=== PATIENT | female | born 1995 | race Caucasian/White ===

== ENCOUNTER 2016-10-13 12:03 | Emergency (ER) | payer MEDICAID | END 2016-10-13 13:36 | disposition home or self-care (01) | DX: G43.909 Migraine, unspecified, not intractable, without status migrainosus (principal) ==

== ENCOUNTER 2017-08-13 10:01 | Outpatient (CLI) | payer MEDICAID ==
--- NOTE | 2017-08-13 13:43 | Ultrasound Report ---
OB ULTRASOUND: 08/13/2017 CLINICAL INDICATION: anatomy. TECHNIQUE: Real-time scanning was performed with loss control representative static images obtained. LAST MENSTRUAL PERIOD 04/18/2017 Clinical Age 16 weeks 5 days US Age 18 weeks 2 days EFW Hadlock 237 EFW% Hadlock 97% Heart Rate 148 bpm EDC 01/23/2018 US EDC 01/12/2018 BPD Hadlock 18 weeks 1 day; Mean mm 39.8 HC Hadlock 18 weeks 0 days; Mean mm 149 AC Hadlock 18 weeks 6 days; Mean mm 134 FL Hadlock 17 weeks 6 days; Mean mm 26 Presentation moving Placental Location anterior Cervical Length 4.0 cm Amniotic Fluid 10.8 FINDINGS: There is a single viable intrauterine gestation, in variable position. heart rate is 148 BPM. The placenta is anterior, without evidence of previa. Amniotic fluid volume is subjectively normal. By size, the fetus measures 18 weeks 2 days (16 weeks 5 days by LMP dating). The following anatomic structures were visualized and appear normal: The intracranial contents, including the ventricles and posterior fossa; the lips and orbits; the spine; the heart, including 4-chamber view and outflow tracts, and diaphragm; the abdominal contents, including the stomach, the bilateral kidneys, and urinary bladder, as well as a normal 3- vessel cord insertion; 4 limbs. The right ovary demonstrates a 2.4 cm corpus luteum. The left ovary is unremarkable. No free fluid is present. IMPRESSION: SINGLE VIABLE INTRAUTERINE GESTATION, WITH SIZE IN KEEPING WITH LMP DATING. NORMAL ANATOMIC SURVEY. MTDD
== END 2017-08-13 10:02 | disposition home or self-care (01) ==
LOC: DI 10:01
PROVIDERS: ATTEND Midwife
DX: Z36.9 Encounter for antenatal screening, unspecified (principal)
CPT/HCPCS: 76811

== ENCOUNTER 2017-12-17 09:27 | Outpatient (CLI) | payer MEDICAID ==
--- NOTE | 2017-12-20 13:19 | Ultrasound Report ---
LIMITED OB ULTRASOUND: 12/17/2017 COMPARISON STUDY: OB ultrasound 08/13/2017. CLINICAL INDICATIONS: labor. Please evaluate cervical length. TECHNIQUE: Real-time scanning was performed with client care representative static images obtained. LAST MENSTRUAL PERIOD: 04/08/2017 Clinical Age: 36 weeks 1 day US Age: --- EFW Hadlock: --- EFW% Hadlock: --- Heart Rate: 134 bpm EDC: 01/13/2018 US EDC: --- BPD Hadlock: --- HC Hadlock: --- AC Hadlock: --- FL Hadlock: --- Presentation: cephalic Placental Location: anterior Cervical Length: 3.43 cm Amniotic Fluid: --- IMPRESSION: LIMITED EXAMINATION. SINGLE VIABLE INTRAUTERINE . NORMAL CLOSED APPEARANCE OF THE CERVIX. NO EVIDENCE OF PLACENTA PREVIA. MTDD
== END 2017-12-17 09:28 | disposition home or self-care (01) ==
LOC: DI 09:27
PROVIDERS: ATTEND Midwife
DX: O60.00 Preterm labor without delivery, unspecified trimester (principal)
CPT/HCPCS: 76815

== ENCOUNTER 2018-05-21 05:51 | Outpatient (CLI) | payer MEDICAID | END 2018-05-21 05:52 | disposition critical access hospital (66) | LOC: EMS 05:51 | PROVIDERS: ATTEND Surgery | DX: R11.2 Nausea with vomiting, unspecified (principal); R20.2 Paresthesia of skin | CPT/HCPCS: A0425; A0429; A0999 ==

== ENCOUNTER 2018-05-21 06:14 | Emergency (ER) | payer MEDICAID ==
[2018-05-21 06:20] VITALS: BP 107/55
[2018-05-21 06:59] LABS: MUDS CUTOFF CONCENTRATIONS CUTOFF CONC BELOW:
[2018-05-21 07:00] LABS: BILIRUBIN,URINE NEGATIVE (NEGATIVE); GLUCOSE, URINE (UA) NEGATIVE (NEGATIVE); KETONES,URINE (UA) >=80 mg/dL (NEGATIVE); LEUKOCYTE ESTERASE, URINE NEGATIVE (NEGATIVE); NITRITE,URINE NEGATIVE (NEGATIVE); OCCULT BLOOD,URINE NEGATIVE (NEGATIVE); PH,URINE 5.5 PH (5.0-7.5); PROTEIN,URINE NEGATIVE (NEGATIVE); UROBILINOGEN,URINE 0.2 (NORMAL) E.U./dL (NORMAL)
[2018-05-21 07:02] LABS: CLARITY,URINE CLEAR (CLEAR); HCG UR QUAL NEGATIVE
[2018-05-21 07:12] LABS: BASOPHILS % (AUTO) 0.5 %; EOSINOPHILS % (AUTO) 0.2 %; HGB - HEMOGLOBIN 13.9 g/dL (12.0-16.0); LYMPHOCYTES # (AUTO) 1.4 10^3/uL (1.5-3.5); LYMPHOCYTES % (AUTO) 17.2 %; MEAN CORPUSCULAR HEMOGLOBIN 29.5 pg (27.0-31.0); MEAN CORPUSCULAR HGB CONC 33.5 g/dL (32.0-36.0); MEAN CORPUSCULAR VOLUME 88.1 fL (81.0-99.0); MONOCYTES # (AUTO) 0.5 10^3/uL (0.0-1.0); MONOCYTES % (AUTO) 6.1 %; NEUTROPHILS # (AUTO) 6.3 10^3/uL (1.5-6.6); PLT - PLATELET COUNT 237 10^3/uL (130-450); RED BLOOD COUNT 4.72 10^6/uL (4.20-5.40); RED CELL DISTRIBUTION WIDTH 14.3 % (12.0-15.0); WHITE BLOOD COUNT 8.3 x10^3/uL (4.8-10.8)
[2018-05-21 07:14] LABS: AMPHETAMINE SCREEN,URINE NEGATIVE (NEGATIVE); BENZODIAZEPINES SCREEN, URINE NEGATIVE (NEGATIVE); COCAINE SCREEN URINE NEGATIVE (NEGATIVE); METHADONE SCREEN, URINE NEGATIVE (NEGATIVE); METHAMPHETAMINES SCREEN, URINE NEGATIVE (NEGATIVE); OPIATE SCREEN, URINE NEGATIVE (NEGATIVE); OXYCODONE SCREEN, URINE NEGATIVE (NEGATIVE); PROPOXYPHENE SCREEN, URINE NEGATIVE (NEGATIVE); TRICYCLIC ANTIDEPRESSANT,URINE NEGATIVE (NEGATIVE)
[2018-05-21 07:23] LABS: ALBUMIN 4.3 g/dL (3.2-5.5); ALBUMIN/GLOBULIN RATIO 1.5 (1.0-2.2); ALKALINE PHOSPHATASE 54 IU/L (42-121); ALT ALANINE AMINOTRANSFERASE 28 IU/L (10-60); AST ASPARTATE AMINOTRANSFERASE 27 IU/L (10-42); BILIRUBIN,TOTAL 0.9 mg/dL (0.2-1.0); BUN - BLOOD UREA NITROGEN 20 mg/dL (6-20); CALCIUM 8.9 mg/dL (8.5-10.3); CARBON DIOXIDE - CO2 22 mmol/L (21-32); CHLORIDE 104 mmol/L (101-111); CREATININE 0.7 mg/dL (0.4-1.0); GFR - MDRD 102 (>89); GLUCOSE 65 mg/dL (70-100); LIPASE 26 U/L (22-51); SODIUM 139 mmol/L (135-145); TOTAL PROTEIN 7.1 g/dL (6.7-8.2)
--- NOTE | 2018-05-21 07:33 | ED Physician Documentation ---
History of Present Illness - Stated complaint Stated Complaint: HYPERVENTILATING - Chief complaint Chief Complaint: Abd Pain - History obtained from History obtained from: Patient - History of Present Illness Timing: Enter time (399), Today - Additonal information Additional information: 23-year-old female was awakened at 4:00 this morning and a cold sweat. She felt chilled she felt that her extremities were cold and numb her nose was cold and she was diaphoretic. She felt a bit confused and she was able to get up to get out of the couch and her sister eventually came and gave her some food. She denies any anxiety associated with this and denies hyperventilation. She states she has had 2 episodes similar to this previously 1 at 7:00 in the morning about a month ago and then one episode while at work about 2 weeks ago. Those previous episodes were much more mild than today's episode. She has been previously diagnosed as prediabetic and she is wondering if she might of been hypoglycemic. She has had food last night she states that she ate fried chicken. Review of Systems Constitutional: reports: Chills, Fatigue, Sweats. denies: Fever Eyes: denies: Decreased vision Ears: reports: Tinnitus/ringing. denies: Ear pain Nose: denies: Rhinorrhea / runny nose, Congestion Throat: denies: Sore throat Cardiac: denies: Chest pain / pressure, Palpitations Respiratory: denies: Dyspnea, Cough GI: denies: Abdominal Pain, Nausea, Vomiting : denies: Dysuria, Frequency Skin: denies: Rash Musculoskeletal: denies: Neck pain, Back pain, Extremity pain Neurologic: denies: Generalized weakness, Focal weakness, Numbness, Confused, Altered mental status, Headache, Head injury, LOC PD PAST MEDICAL HISTORY - Past Medical History Past Medical History: No Cardiovascular: None Respiratory: None Endocrine/Autoimmune: HyPOthyroidism GI: None 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: Ovarian cysts : Chronic bladder infection, Other HEENT: None Psych: None Musculoskeletal: Fibromyalgia Derm: None - Past Surgical History Past Surgical History: No - Present Medications Home Medications: Ambulatory Orders Medication Instructions Recorded Confirmed Ondansetron Odt [Zofran] 4 mg TL Q6H PRN #10 tablet 05/21/18 - Allergies Allergies/Adverse Reactions: Allergies Allergy/AdvReac Type Severity Reaction Status Date / Time acetaminophen [From Vicodin] Allergy Itching Verified 07/08/15 16:56 hydrocodone bitartrate * Allergy Itching Verified 07/08/15 16:56 [From Vicodin] - Social History Does the pt smoke?: No Smoking Status: Never smoker Does the pt drink ETOH?: Yes Does the pt have substance abuse?: No - Immunizations Immunizations are current?: No - POLST Patient has POLST: No PD ED PE NORMAL - Vitals Vital signs reviewed: Yes (hypotensive mild diastolic ) - General General: Alert and oriented X 3, No acute distress, Well developed/nourished - HEENT HEENT: Atraumatic, PERRL, EOMI, Ears normal, Moist mucous membranes, Pharynx benign, Dentition benign - Neck Neck: Supple, no meningeal sign, No bony TTP - Cardiac Cardiac: RRR, No murmur - Respiratory Respiratory: No respiratory distress, Clear bilaterally - Abdomen Abdomen: Soft, Non tender - Back Back: No CVA TTP, No spinal TTP - Derm Derm: Normal color, Warm and dry, No rash - Extremities Extremities: No deformity, No edema - Neuro Neuro: Alert and oriented X 3, barrel plater 2-12 intact, No motor deficit, No sensory deficit, Normal speech Eye Opening: Spontaneous Motor: Obeys Commands Verbal: Oriented GCS Score: 15 - Psych Psych: Normal mood, Normal affect Results - Vitals Vitals: Vital Signs - 24 hr 05/21/18 06:16 Temperature 36.5 C Heart Rate 86 Respiratory 14 Rate Blood Pressure 107/55 L O2 Saturation 98 Oxygen O2 Source Room air - Labs Labs: Laboratory Tests 05/21/18 05/21/18 05/21/18 06:50 06:50 07:04 WBC 8.3 RBC 4.72 Hgb 13.9 Hct 41.5 MCV 88.1 MCH 29.5 MCHC 33.5 RDW 14.3 Plt Count 237 MPV 8.0 Neut # (Auto) 6.3 Lymph # (Auto) 1.4 L [place] # (Auto) 0.5 Eos # (Auto) 0.0 Baso # (Auto) 0.0 Absolute Nucleated RBC 0.00 Nucleated RBC % 0.0 Sodium Potassium Chloride Carbon Dioxide Anion Gap BUN Creatinine Estimated GFR (MDRD) Glucose Calcium Total Bilirubin AST ALT Alkaline Phosphatase Total Protein Albumin Globulin Albumin/Globulin Ratio Lipase TSH Urine Color YELLOW Urine Clarity CLEAR Urine pH 5.5 Ur Specific [place] >=1.030 H Urine Protein NEGATIVE Urine Glucose (UA) NEGATIVE Urine Ketones >=80 H Urine Occult Blood NEGATIVE Urine Nitrite NEGATIVE Urine Bilirubin NEGATIVE Urine Urobilinogen 0.2 (NORMAL) Ur Leukocyte Esterase NEGATIVE Ur Microscopic Review NOT INDICATED Urine Culture Comments NOT INDICATED Urine HCG, Qual NEGATIVE Urine Opiates Screen NEGATIVE Ur Oxycodone Screen NEGATIVE Urine Methadone Screen NEGATIVE Ur Propoxyphene Screen NEGATIVE Ur Barbiturates Screen NEGATIVE Ur Tricyclics Screen NEGATIVE Ur Phencyclidine Scrn NEGATIVE Ur Amphetamine Screen NEGATIVE U Methamphetamines Scrn NEGATIVE U Benzodiazepines Scrn NEGATIVE Urine Cocaine Screen NEGATIVE U Cannabinoids Screen NEGATIVE Ethyl Alcohol 05/21/18 05/21/18 07:04 07:04 WBC RBC Hgb Hct MCV MCH MCHC RDW Plt Count MPV Neut # (Auto) Lymph # (Auto) [place] # (Auto) Eos # (Auto) Baso # (Auto) Absolute Nucleated RBC Nucleated RBC % Sodium 139 Potassium 3.7 Chloride 104 Carbon Dioxide 22 Anion Gap 13.0 BUN 20 Creatinine 0.7 Estimated GFR (MDRD) 102 Glucose 65 L Calcium 8.9 Total Bilirubin 0.9 AST 27 ALT 28 Alkaline Phosphatase 54 Total Protein 7.1 Albumin 4.3 Globulin 2.8 Albumin/Globulin Ratio 1.5 Lipase 26 TSH 0.55 Urine Color Urine Clarity Urine pH Ur Specific [place] Urine Protein Urine Glucose (UA) Urine Ketones Urine Occult Blood Urine Nitrite Urine Bilirubin Urine Urobilinogen Ur Leukocyte Esterase Ur Microscopic Review Urine Culture Comments Urine HCG, Qual Urine Opiates Screen Ur Oxycodone Screen Urine Methadone Screen Ur Propoxyphene Screen Ur Barbiturates Screen Ur Tricyclics Screen Ur Phencyclidine Scrn Ur Amphetamine Screen U Methamphetamines Scrn U Benzodiazepines Scrn Urine Cocaine Screen U Cannabinoids Screen Ethyl Alcohol < 5.0 Procedures - IVC sono (time) 0725 Bedside IVC sono: IVC measures (cm) (1.59), Euvolemia PD MEDICAL DECISION MAKING - ED course Complexity details: reviewed old records, reviewed results, re-evaluated patient , considered differential, d/w patient ED course: 23-year-old female with a history of frequent urinary tract infections has developed an acute episode early this morning with diaphoresis and hypothermia. She is found to have a low blood sugar this morning and her episodes are consistent with hypoglycemia. Her symptoms were not consistent with acute anxiety attack. Her blood glucose was 65 and she has ketones in her urine. On further history she is breast feeding a 4 month old baby. A re-check of her blood sugar is 53 at 0745. She is provided with juice. She is provided with zofran and a meal and her blood sugar is 113 after eating. - Sepsis Event Vital Signs: Vital Signs - 24 hr 05/21/18 06:16 Temperature 36.5 C Heart Rate 86 Respiratory 14 Rate Blood Pressure 107/55 L O2 Saturation 98 Oxygen O2 Source Room air Departure - Departure Disposition: 01 Home, Self Care Clinical Impression: Hypoglycemia Condition: Stable Instructions: ED Blood Sugar Low Non Diabetic Follow-Up: Rafael Thomson MD [Primary Care Provider] - Prescriptions: Ondansetron Odt [Zofran] 4 mg TL Q6H PRN #10 tablet PRN Reason: Nausea / Vomiting Forms: Activity restrictions
[2018-05-21] MEDS ORDERED: ONDANSETRON ODT 4 MG TABLET TL STA (08:12)
== END 2018-05-21 09:04 | disposition home or self-care (01) ==
LOC: ED 06:14
DX: E16.2 Hypoglycemia, unspecified (principal)
CPT/HCPCS: 36415; 80053; 80306; 80320; 81003; 81025; 83690; 84443; 85025; 99282; 99283; Q0162; 81001; 87086

== ENCOUNTER 2019-01-01 22:38 | Emergency (ER) | payer MEDICAID ==
[2019-01-02 00:02] LABS: BILIRUBIN,URINE NEGATIVE (NEGATIVE); GLUCOSE, URINE (UA) NEGATIVE (NEGATIVE); KETONES,URINE (UA) NEGATIVE (NEGATIVE); LEUKOCYTE ESTERASE, URINE NEGATIVE (NEGATIVE); NITRITE,URINE NEGATIVE (NEGATIVE); OCCULT BLOOD,URINE TRACE-LYSE (NEGATIVE); PH,URINE 5.5 PH (5.0-7.5); PROTEIN,URINE NEGATIVE (NEGATIVE); UROBILINOGEN,URINE 0.2 (NORMAL) E.U./dL (NORMAL)
[2019-01-02 00:03] LABS: CLARITY,URINE CLEAR (CLEAR)
[2019-01-02 00:04] LABS: HCG UR QUAL NEGATIVE
--- NOTE | 2019-01-02 00:05 | ED Physician Documentation ---
PD HPI ABD PAIN - Stated complaint Stated Complaint: ABD PX - Chief complaint Chief Complaint: Abd Pain - History obtained from History obtained from: Patient - History of Present Illness Timing - onset: How many days ago (5) Timing - duration: Days (5) Timing - details: Gradual onset Quality: Pain Location: Other (across pelvic, mid=left pelvis>right pelvis) Improved by: Other (no ameliorating factors) Worsened by: Palpation Associated symptoms: No: Fever, Nausea, Vomiting, Diarrhea, Constipation Recently seen: Not recently seen - Additional information Additional information: had IUD placed 5 days ago, c/o pelvic pain since that time. She had similar discomfort with last IUD. Patient says she contacted her indirect sales representative and was told to go to ED to have this pain evaluated and to consider having IUD removed. 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: Ovarian cysts : Chronic bladder infection, Other HEENT: None Psych: None Musculoskeletal: Fibromyalgia Derm: None - Past Surgical History Past Surgical History: No - Present Medications Home Medications: Ambulatory Orders Medication Instructions Recorded Confirmed No Known Home Medications 01/01/19 01/01/19 - Allergies Allergies/Adverse Reactions: Allergies Allergy/AdvReac Type Severity Reaction Status Date / Time acetaminophen [From Vicodin] Allergy Itching Verified 01/01/19 22:49 hydrocodone bitartrate * Allergy Itching Verified 01/01/19 22:49 [From Vicodin] - Social History Does the pt smoke?: No Smoking Status: Never smoker Does the pt drink ETOH?: Yes Does the pt have substance abuse?: No - Immunizations Immunizations are current?: No - POLST Patient has POLST: No PD ED PE NORMAL - Vitals Vital signs reviewed: Yes - General General: Alert and oriented X 3, No acute distress, Well developed/nourished - Abdomen Abdomen: Soft, Non tender, Non distended - Back Back: No CVA TTP - Derm Derm: Normal color, Warm and dry PD ED PE EXPANDED - Female Female : Normal external, Vaginal Discharge (scant white/yellow creamy discharge), Turn Down Worker present, Other (IUD strings visualized. Prior to this exam, I d/w patient that I recommend removal of IUD, and she agreed with this. At this time, I again explained that I would be removing the IUD, and she again agrees with removal of IUD. IUD removed using ringed forceps; there was no resistance nor complication. no bleeding. IUD is inspected and is intact after removal). No: Skin lesions, Vaginal Bleeding Results - Vitals Vitals: Oxygen O2 Source Room air - Labs Labs: Laboratory Tests 01/01/19 01/01/19 23:40 23:40 Urine Color YELLOW Urine Clarity CLEAR Urine pH 5.5 Ur Specific [place] >=1.030 H >=1.030 H Urine Protein NEGATIVE Urine Glucose (UA) NEGATIVE Urine Ketones NEGATIVE Urine Occult Blood TRACE-LYSE Urine Nitrite NEGATIVE Urine Bilirubin NEGATIVE Urine Urobilinogen 0.2 (NORMAL) Ur Leukocyte Esterase NEGATIVE Ur Microscopic Review NOT INDICATED Urine Culture Comments NOT INDICATED Urine HCG, Qual NEGATIVE PD MEDICAL DECISION MAKING - ED course Complexity details: considered differential, d/w patient Departure - Departure Disposition: 01 Home, Self Care Clinical Impression: Pelvic pain Condition: Good Instructions: ED Pelvic Pain [facility]O Comments: Contact your indirect sales representative in the morning to arrange for next available appointment for follow-up Discharge Date/Time: 01/02/19 01:49
[2019-01-02 01:49] VITALS: BP 105/68
== END 2019-01-02 01:49 | disposition home or self-care (01) ==
LOC: ED 22:38
DX: R10.2 Pelvic and perineal pain (principal); Z30.432 Encounter for removal of intrauterine contraceptive device
CPT/HCPCS: 58301; 81001; 81003; 81025; 87086; 99283

== ENCOUNTER 2019-01-09 18:19 | Emergency (ER) | payer MEDICAID ==
[2019-01-09] MEDS ORDERED: IOVERSOL 320 100 ML VIAL IVP ONE ×3 (18:20→20:47)
--- NOTE | 2019-01-09 19:43 | ED Physician Documentation ---
History of Present Illness - Stated complaint Stated Complaint: FEVER/FATIGUE/CHILLS - Chief complaint Chief Complaint: Fever - History obtained from History obtained from: Patient, Family (mom) - History of Present Illness Timing: Other (This is a 23-year-old woman with chronic but worsening complaints. Starting after the of her first child who is now 6 but more acutely over the last several weeks she has had weight loss. She says she is lost about 7 pounds in the last few weeks. She had fevers for the last 4 weeks up to 100.0. She notes swollen lymph nodes and migratory joint pains initially in the hands and now in the knee. She has had hair loss and itchy skin. She denies depression. She is on [facility] September who did lab work showing a basically normal CBC, CMP and modestly elevated CRP of about 10 and a ESR of about 20.) Review of Systems Constitutional: reports: Fever, Myalgias, Fatigue, Weight Loss, Sweats Nose: denies: Rhinorrhea / runny nose, Congestion Throat: reports: Sore throat Cardiac: denies: Chest pain / pressure Respiratory: denies: Dyspnea, Cough GI: denies: Abdominal Pain, Nausea, Vomiting, Diarrhea PD PAST MEDICAL HISTORY - Past Medical History Past Medical History: Yes Cardiovascular: None Respiratory: None Endocrine/Autoimmune: HyPOthyroidism GI: None 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: Ovarian cysts : Chronic bladder infection, Other HEENT: None Psych: None Musculoskeletal: Fibromyalgia Derm: None - Past Surgical History Past Surgical History: No - Present Medications Home Medications: Ambulatory Orders Medication Instructions Recorded Confirmed No Known Home Medications 01/01/19 01/09/19 - Allergies Allergies/Adverse Reactions: Allergies Allergy/AdvReac Type Severity Reaction Status Date / Time acetaminophen [From Vicodin] Allergy Itching Verified 01/09/19 18:32 hydrocodone bitartrate * Allergy Itching Verified 01/09/19 18:32 [From Vicodin] - Social History Does the pt smoke?: No Smoking Status: Never smoker Does the pt drink ETOH?: Yes Does the pt have substance abuse?: No - Immunizations Immunizations are current?: No - POLST Patient has POLST: No PD ED PE NORMAL - Vitals Vital signs reviewed: Yes - General General: Alert and oriented X 3, No acute distress - HEENT HEENT: PERRL, EOMI, Pharynx benign - Neck Neck: Supple, no meningeal sign, No bony TTP, No adenopathy - Cardiac Cardiac: RRR, No murmur - Respiratory Respiratory: No respiratory distress, Clear bilaterally - Abdomen Abdomen: Normal bowel sounds, Soft, Non tender - Back Back: No CVA TTP, No spinal TTP - Derm Derm: Normal color, Warm and dry - Extremities Extremities: No edema, No calf tenderness / cord - Neuro Neuro: Alert and oriented X 3, Normal speech Results - Vitals Vitals: Vital Signs - 24 hr 01/09/19 01/09/19 18:29 21:07 Temperature 37.1 C 37.1 C Heart Rate 88 86 Respiratory 20 14 Rate Blood Pressure 118/74 113/78 O2 Saturation 98 99 Oxygen O2 Source Room air - Labs Labs: Laboratory Tests 01/09/19 01/09/19 01/09/19 19:59 20:00 20:05 WBC 7.7 RBC 4.87 Hgb 14.1 Hct 43.2 MCV 88.8 MCH 29.0 MCHC 32.6 RDW 14.2 Plt Count 271 MPV 8.7 Neut # (Auto) 3.9 Lymph # (Auto) 3.0 [place] # (Auto) 0.6 Eos # (Auto) 0.1 Baso # (Auto) 0.0 Absolute Nucleated RBC 0.00 Nucleated RBC % 0.0 ESR Sodium Potassium Chloride Carbon Dioxide Anion Gap BUN Creatinine Estimated GFR (MDRD) Glucose Calcium Total Bilirubin AST ALT Alkaline Phosphatase C-Reactive Protein Total Protein Albumin Globulin Albumin/Globulin Ratio Lipase Urine Color YELLOW Urine Clarity CLEAR Urine pH 7.0 Ur Specific [place] 1.020 Urine Protein NEGATIVE Urine Glucose (UA) NEGATIVE Urine Ketones NEGATIVE Urine Occult Blood NEGATIVE Urine Nitrite NEGATIVE Urine Bilirubin NEGATIVE Urine Urobilinogen 0.2 (NORMAL) Ur Leukocyte Esterase NEGATIVE Ur Microscopic Review NOT INDICATED Urine Culture Comments NOT INDICATED Urine HCG, Qual NEGATIVE Group A Strep Rapid Negative 01/09/19 01/09/19 01/09/19 20:05 20:05 20:05 WBC RBC Hgb Hct MCV MCH MCHC RDW Plt Count MPV Neut # (Auto) Lymph # (Auto) [place] # (Auto) Eos # (Auto) Baso # (Auto) Absolute Nucleated RBC Nucleated RBC % ESR 1 Sodium 137 Potassium 3.5 Chloride 105 Carbon Dioxide 24 Anion Gap 8.0 BUN 17 Creatinine 0.6 Estimated GFR (MDRD) 122 Glucose 94 Calcium 8.8 Total Bilirubin 0.5 AST 24 ALT 17 Alkaline Phosphatase 42 C-Reactive Protein < 1.0 Total Protein 8.0 Albumin 4.5 Globulin 3.5 Albumin/Globulin Ratio 1.3 Lipase 39 Urine Color Urine Clarity Urine pH Ur Specific [place] Urine Protein Urine Glucose (UA) Urine Ketones Urine Occult Blood Urine Nitrite Urine Bilirubin Urine Urobilinogen Ur Leukocyte Esterase Ur Microscopic Review Urine Culture Comments Urine HCG, Qual Group A Strep Rapid - Rads (name of study) CT A/P Radiology: EMP read contemporaneously (small pelvic FF, Small LLL Pulm nodule) CXR Radiology: EMP read contemporaneously (Normal) PD MEDICAL DECISION MAKING - ED course ED course: This is a 23-year-old woman with chronic fatigue and polyarthralgia now with fever of unknown origin. Her previous workup includes a remote visit with a tarring machine operator who felt it might be fibromyalgia but the fever would be inconsistent with that. More recently she saw [facility] and had labs done as mentioned in the HPI. Her labs were repeated today along with a chest x-ray and abdominal CT after discussion looking for lymphoma et al. Her inflammatory markers are now negative and the rest of her diagnostics were negative. Also we did send outs for HIV and Lyme, she understands she will need to find out the results of these as they will not be resulted tonight. Departure - Departure Disposition: 01 Home, Self Care Clinical Impression: FUO (fever of unknown origin), Polyarthralgia, Fatigue Condition: Good Instructions: ED Fever Unconf Cause Comments: As discussed, still pending are Lyme disease and HIV testing. Please follow-up with your primary care physician and they request can request these results from our lab to discuss with you. Your inflammatory markers today are reassuring and normal. The chest x-ray is normal. I do recommend following up with a tarring machine operator, either luisito Rivera who you saw a few years ago or 1 of the others that I gave you the info sheets on. Discharge Date/Time: 01/09/19 21:38
--- NOTE | 2019-01-09 20:15 | XRAY Report ---
Reason: fever of unknown origin Procedure Date: 01/09/2019 Accession Number: [id number] / [id number] Procedure: XR - Chest 2 View X-Ray CPT Code: 71502 FULL RESULT: EXAM: CHEST RADIOGRAPHY EXAM DATE: 01/09/2019 07:57 PM. CLINICAL HISTORY: Fever of unknown origin. COMPARISON: None. TECHNIQUE: 2 views. FINDINGS: Lungs/Pleura: No focal opacities evident. No pleural effusion. No pneumothorax. Normal volumes. Mediastinum: Heart and mediastinal contours are unremarkable. Other: None. IMPRESSION: Normal 2-view chest radiography. RADIA
[2019-01-09 20:17] LABS: BILIRUBIN,URINE NEGATIVE (NEGATIVE); GLUCOSE, URINE (UA) NEGATIVE (NEGATIVE); KETONES,URINE (UA) NEGATIVE (NEGATIVE); LEUKOCYTE ESTERASE, URINE NEGATIVE (NEGATIVE); NITRITE,URINE NEGATIVE (NEGATIVE); OCCULT BLOOD,URINE NEGATIVE (NEGATIVE); PROTEIN,URINE NEGATIVE (NEGATIVE); UROBILINOGEN,URINE 0.2 (NORMAL) E.U./dL (NORMAL)
[2019-01-09 20:19] LABS: CLARITY,URINE CLEAR (CLEAR); HCG UR QUAL NEGATIVE
[2019-01-09 20:19] LABS: BASOPHILS % (AUTO) 0.3 %; EOSINOPHILS # (AUTO) 0.1 10^3/uL (0.0-0.7); EOSINOPHILS % (AUTO) 1.1 %; HGB - HEMOGLOBIN 14.1 g/dL (12.0-16.0); LYMPHOCYTES % (AUTO) 39.2 %; MEAN CORPUSCULAR HGB CONC 32.6 g/dL (32.0-36.0); MEAN CORPUSCULAR VOLUME 88.8 fL (81.0-99.0); MEAN PLATELET VOLUME 8.7 fL (7.9-10.8); MONOCYTES # (AUTO) 0.6 10^3/uL (0.0-1.0); NEUTROPHILS # (AUTO) 3.9 10^3/uL (1.5-6.6); NEUTROPHILS % (AUTO) 51.4 %; PLT - PLATELET COUNT 271 10^3/uL (130-450); RED BLOOD COUNT 4.87 10^6/uL (4.20-5.40); RED CELL DISTRIBUTION WIDTH 14.2 % (12.0-15.0); WHITE BLOOD COUNT 7.7 x10^3/uL (4.8-10.8)
[2019-01-09 20:29] LABS: ALBUMIN 4.5 g/dL (3.2-5.5); ALBUMIN/GLOBULIN RATIO 1.3 (1.0-2.2); BILIRUBIN,TOTAL 0.5 mg/dL (0.2-1.0); CALCIUM 8.8 mg/dL (8.5-10.3); CREATININE 0.6 mg/dL (0.4-1.0)
[2019-01-09 21:08] VITALS: BP 113/78
--- NOTE | 2019-01-09 21:31 | CT Report ---
Reason: IV only fever of unknown origin Procedure Date: 01/09/2019 Accession Number: [id number] / [id number] Procedure: CT - Abdomen/Pelvis W CPT Code: FULL RESULT: EXAM: CT ABDOMEN AND PELVIS EXAM DATE: 01/09/2019 08:49 PM. CLINICAL HISTORY: Fever of unknown origin. COMPARISONS: ABD/PEL 12/04/2009 12:11 AM. TECHNIQUE: Routine helical CT imaging was performed through the abdomen and pelvis. IV contrast: OPTIRAY 320 100ML. Enteric contrast: No. Reconstructions: Coronal and sagittal. In accordance with CT protocol optimization, one or more of the following dose reduction techniques were utilized for this exam: automated exposure control, adjustment of mA and/or KV based on patient size, or use of iterative reconstructive technique. FINDINGS: Lung Bases: 4mm lower lobe lateral pulmonary nodule. Liver: Normal. No masses. Gallbladder/Bile Ducts: Unremarkable. Spleen: Normal. Pancreas: Normal. Adrenal Glands: Normal. Kidneys: Normal. No masses or hydronephrosis. Peritoneal Cavity/Bowel: Visualized portions of the appendix appear within normal limits. No acute bowel findings are seen. No evidence for bowel obstruction. Minimal free fluid seen in the posterior cul-de-sac. No free air. Pelvic Organs: Normal. The bladder and visualized pelvic organs are within normal limits. Corpus luteum in the right ovary. Vasculature: No acute findings. Prominent left ovarian vein. Bones: No significant abnormality. IMPRESSION: 1. Minimal free fluid seen in the posterior cul-de-sac. This could be physiologic. 2. Visualized portions of the appendix appear within normal limits. 3. 4mm lower lobe lateral pulmonary nodule. If there is known primary malignancy, recommend a follow-up chest CT in one year, otherwise no follow-up is warranted. [facility]IA
[2019-01-11 13:11] LABS: HIV AG/AB 4TH GEN NON-REACTIVE (NON-REACTIVE)
== END 2019-01-09 21:38 | disposition home or self-care (01) ==
LOC: ED 18:19
DX: R50.9 Fever, unspecified (principal); M25.50 Pain in unspecified joint; R53.83 Other fatigue; E03.9 Hypothyroidism, unspecified
CPT/HCPCS: 36415; 71046; 74177; 80053; 81003; 81025; 83690; 85025; 85651; 86140; 86617; 87070; 87389; 87430; 99283; Q9967; 81001; 87086

== ENCOUNTER 2019-02-22 16:05 | Emergency (ER) | payer MEDICAID ==
--- NOTE | 2019-02-22 16:44 | ED Physician Documentation ---
PD HPI ABD PAIN - Stated complaint Stated Complaint: BACK PX/FEVER/SORE THROAT - Chief complaint Chief Complaint: Abd Pain - History obtained from History obtained from: Patient - History of Present Illness Timing - onset: How many days ago (few) Timing - duration: Days (few) Timing - details: Gradual onset, Still present, Waxing and waning Quality: Cramping, Aching, Pain Location: Suprapubic, LLQ Radiation: Left flank (mostly), Right flank (some) Improved by: No: Eating, Laying still Worsened by: Moving, Position. No: Eating Associated symptoms: Fever (intermittent the past day), Nausea. No: Vomiting, Diarrhea, Constipation, Dysuria, Vaginal bleeding, Vaginal dc Similar symptoms before: Diagnosis (UTIs), No diagnosis (has not had Dx made for the prolonged episodes of fever, malaise, sore throat.) Review of Systems Constitutional: reports: Fever (to 103 yesterday, is up intermittently then back to normal.), Myalgias, Fatigue Nose: reports: Congestion. denies: Rhinorrhea / runny nose, Sinus pressure / pain Throat: denies: Sore throat Cardiac: denies: Chest pain / pressure Respiratory: reports: Cough. denies: Dyspnea GI: reports: Abdominal Pain, Nausea. denies: Vomiting, Constipation, Diarrhea : reports: Frequency. 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: Ovarian cysts : Chronic bladder infection, Other HEENT: None Psych: None Musculoskeletal: Fibromyalgia Derm: None - Past Surgical History Past Surgical History: No - Present Medications Home Medications: Ambulatory Orders Medication Instructions Recorded Confirmed Metronidazole [Flagyl] 500 mg PO BID #14 tablet 02/22/19 Naproxen 500 mg PO BID #20 tablet 02/22/19 Tramadol HCl 50 mg PO Q6H PRN #15 tablet 02/22/19 - Allergies Allergies/Adverse Reactions: Allergies Allergy/AdvReac Type Severity Reaction Status Date / Time acetaminophen [From Vicodin] Allergy Itching Verified 02/22/19 16:11 hydrocodone bitartrate * Allergy Itching Verified 02/22/19 16:11 [From Vicodin] - Social History Does the pt smoke?: No Smoking Status: Never smoker Does the pt drink ETOH?: Yes Does the pt have substance abuse?: No - Immunizations Immunizations are current?: No - POLST Patient has POLST: No PD ED PE NORMAL - Vitals Vital signs reviewed: Yes - General General: Alert and oriented X 3, No acute distress, Well developed/nourished - HEENT HEENT: Ears normal, Pharynx benign - Neck Neck: Supple, no meningeal sign, No adenopathy - Cardiac Cardiac: RRR, No murmur - Respiratory Respiratory: Clear bilaterally - Abdomen Abdomen: Soft, Non tender - 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 External is normal. The vault has milky white discharge, with some cervical os irritation and endocervical discharge. No malodor appreciated. ) - Back Back: Other (some CVA tenderness but is more tender to palpation/percussion lower into lower lumbar. No rash nor sores.) - Derm Derm: Normal color, Warm and dry, No rash - Neuro Neuro: Alert and oriented X 3, No motor deficit, Normal speech Results - Vitals Vitals: Vital Signs - 24 hr 02/22/19 02/22/19 02/22/19 16:09 17:40 18:59 Temperature 37.0 C 36.7 C 36.7 C Heart Rate 83 64 60 Respiratory 18 16 16 Rate Blood Pressure 119/70 118/66 107/74 O2 Saturation 98 99 99 Oxygen O2 Source Room air - Labs Labs: Microbiology 02/22/19 18:35 Wet Prep - Final Genital - Vaginal Laboratory Tests 02/22/19 02/22/19 02/22/19 17:25 17:25 17:29 WBC 7.3 RBC 4.82 Hgb 14.5 Hct 42.8 MCV 88.8 MCH 30.0 MCHC 33.8 RDW 14.4 Plt Count 260 MPV 8.1 Neut # (Auto) 4.5 Lymph # (Auto) 2.0 [place] # (Auto) 0.6 Eos # (Auto) 0.1 Baso # (Auto) 0.1 Absolute Nucleated RBC 0.00 Nucleated RBC % 0.0 Urine Color YELLOW Urine Clarity CLEAR Urine pH 6.5 Ur Specific [place] 1.020 Urine Protein NEGATIVE Urine Glucose (UA) NEGATIVE Urine Ketones NEGATIVE Urine Occult Blood NEGATIVE Urine Nitrite NEGATIVE Urine Bilirubin NEGATIVE Urine Urobilinogen 0.2 (NORMAL) Ur Leukocyte Esterase NEGATIVE Ur Microscopic Review NOT INDICATED Urine Culture Comments NOT INDICATED Urine HCG, Qual NEGATIVE Chlam trachomat DNA PCR Infectious [place] Assay NEGATIVE N.gonorrhoeae DNA (PCR) T. vaginalis (PCR) 02/22/19 17:29 WBC RBC Hgb Hct MCV MCH MCHC RDW Plt Count MPV Neut # (Auto) Lymph # (Auto) [place] # (Auto) Eos # (Auto) Baso # (Auto) Absolute Nucleated RBC Nucleated RBC % Urine Color Urine Clarity Urine pH Ur Specific [place] Urine Protein Urine Glucose (UA) Urine Ketones Urine Occult Blood Urine Nitrite Urine Bilirubin Urine Urobilinogen Ur Leukocyte Esterase Ur Microscopic Review Urine Culture Comments Urine HCG, Qual Chlam trachomat DNA PCR NEGATIVE Infectious [place] Assay N.gonorrhoeae DNA (PCR) NEGATIVE T. vaginalis (PCR) NEGATIVE PD MEDICAL DECISION MAKING - ED course Complexity details: reviewed results (she does have BV on exam, and this could result in her lower abd cramps, back pain, consider ? for the fevers (less common). Unlikely to be causing her prior sore throats, malaise, fatigue, but could be hopeful that general symptoms clear as well, with treating the BV.), considered differential (has had general malaise, intermittent fevers, some sore throat and swollen glands at times. Has had tests for strep, Lyme, CBC, UA. She does not think she had Ware testing or chronic EBV. Today is concerned about UTI/kidney infection. Had not noted vaginal discharge. ), d/w patient Departure - Departure Disposition: 01 Home, Self Care Clinical Impression: Bacterial vaginitis Low back pain Qualifiers: Chronicity: acute Back pain laterality: bilateral Sciatica presence: without sciatica Qualified Code(s): M54.5 - Low back pain Condition: Stable Record reviewed to determine appropriate education?: Yes Instructions: ED Vaginosis Bacterial Follow-Up: Medardo Pino DO [Primary Care Provider] - Prescriptions: Metronidazole [Flagyl] 500 mg PO BID #14 tablet Naproxen 500 mg PO BID #20 tablet Tramadol HCl 50 mg PO Q6H PRN #15 tablet PRN Reason: Pain Comments: On your exam, it does look like a bacterial vaginitis. This hopefully is accounting for your feeling of illness in the back pain. We will treat it with metronidazole twice daily as directed. You can add naproxen anti-inflammatory twice daily for the next 7 to 10 days for inflammation and pains. Add Tylenol or tramadol if needed for pains. The "culture" test we did today on the vaginal discharge will take a few days for the results and will call you if we need to add a different antibiotic for other infections (such as chlamydia, which it does not look like but await the culture). The exam is consistent enough with a bacterial vaginitis to treat that for now. You can follow-up with your primary care in 2 to 3 weeks for reexam to ensure it appears fully cleared. Forms: Activity restrictions Discharge Date/Time: 02/22/19 18:58
[2019-02-22 17:37] LABS: BASOPHILS # (AUTO) 0.1 10^3/uL (0.0-0.1); EOSINOPHILS # (AUTO) 0.1 10^3/uL (0.0-0.7); EOSINOPHILS % (AUTO) 1.2 %; HGB - HEMOGLOBIN 14.5 g/dL (12.0-16.0); LYMPHOCYTES % (AUTO) 28.1 %; MEAN CORPUSCULAR HGB CONC 33.8 g/dL (32.0-36.0); MEAN CORPUSCULAR VOLUME 88.8 fL (81.0-99.0); MEAN PLATELET VOLUME 8.1 fL (7.9-10.8); MONOCYTES # (AUTO) 0.6 10^3/uL (0.0-1.0); MONOCYTES % (AUTO) 7.9 %; NEUTROPHILS # (AUTO) 4.5 10^3/uL (1.5-6.6); NEUTROPHILS % (AUTO) 61.8 %; PLT - PLATELET COUNT 260 10^3/uL (130-450); RED BLOOD COUNT 4.82 10^6/uL (4.20-5.40); RED CELL DISTRIBUTION WIDTH 14.4 % (12.0-15.0); WHITE BLOOD COUNT 7.3 x10^3/uL (4.8-10.8)
[2019-02-22 17:40] LABS: BILIRUBIN,URINE NEGATIVE (NEGATIVE); GLUCOSE, URINE (UA) NEGATIVE (NEGATIVE); KETONES,URINE (UA) NEGATIVE (NEGATIVE); LEUKOCYTE ESTERASE, URINE NEGATIVE (NEGATIVE); NITRITE,URINE NEGATIVE (NEGATIVE); OCCULT BLOOD,URINE NEGATIVE (NEGATIVE); PH,URINE 6.5 PH (5.0-7.5); PROTEIN,URINE NEGATIVE (NEGATIVE); UROBILINOGEN,URINE 0.2 (NORMAL) E.U./dL (NORMAL)
[2019-02-22 17:47] LABS: CLARITY,URINE CLEAR (CLEAR); HCG UR QUAL NEGATIVE
[2019-02-22] MEDS ORDERED: NAPROXEN 250 MG TABLET PO STA (18:23)
[2019-02-22] MEDS ORDERED: metroNIDAZOLE 250 MG TABLET PO STA (18:43)
[2019-02-22 19:00] VITALS: BP 107/74
[2019-02-22 23:02] LABS: TRICHOMONAS VAGINALIS DNA NEGATIVE (NEGATIVE)
[2019-02-25 15:56] LABS: EBV VIRAL CAPSID AB VCA IGG >750.00 U/mL; EBV VIRAL CAPSID AB VCA IGM <36.00 U/mL
== END 2019-02-22 18:58 | disposition home or self-care (01) ==
LOC: ED 16:05
DX: N76.0 Acute vaginitis (principal)
CPT/HCPCS: 36415; 81003; 81025; 85025; 86308; 86665; 87210; 87491; 87591; 87661; 99283; A9270; 81001; 87086

== ENCOUNTER 2019-05-17 08:00 | Outpatient (CLI) | payer MEDICAID | END 2019-05-17 23:59 | LOC: LAB.R 08:00 | PROVIDERS: ATTEND Obstetrics & Gynecology | DX: R30.0 Dysuria (principal) | CPT/HCPCS: 87086 ==

== ENCOUNTER 2019-06-29 15:23 | Outpatient (CLI) | payer MEDICAID | END 2019-06-29 15:24 | disposition critical access hospital (66) | LOC: EMS 15:23 | PROVIDERS: ATTEND Surgery | DX: M54.5 Low back pain (principal); R50.9 Fever, unspecified; R11.2 Nausea with vomiting, unspecified; R51 Headache | CPT/HCPCS: A0425; A0427; A0999 ==

== ENCOUNTER 2019-06-29 15:45 | Emergency (ER) | payer MEDICAID ==
[2019-06-29] MEDS ORDERED: KETOROLAC 30 MG/ML VIAL IVP STA (16:18)
--- NOTE | 2019-06-29 16:21 | ED Physician Documentation ---
PD HPI ABD PAIN - Stated complaint Stated Complaint: LT LOWER FLANK PAIN N/V - Chief complaint Chief Complaint: Abd Pain - History obtained from History obtained from: Patient - History of Present Illness Timing - onset: How many days ago (3) Timing - duration: Days (3) Timing - details: Gradual onset, Still present Quality: Sharp, Pain Location: RUQ Radiation: Right flank Improved by: Laying still Worsened by: Moving, Breathing, Position, Palpation Associated symptoms: Nausea, Vomiting, Loss of appetite Similar symptoms before: Has not had sx before Recently seen: Not recently seen - Additional information Additional information: Previously well 24-year-old female has developed right-sided flank pain fever nausea and vomiting over the past 3 days. She drank a lot of fluid and was urinating more but did not feel that she had any pain associated with urination. She has not had these symptoms previously. Review of Systems Constitutional: reports: Fever, Chills, Myalgias, Fatigue Eyes: denies: Decreased vision Ears: denies: Ear pain Nose: denies: Rhinorrhea / runny nose, Congestion Throat: denies: Sore throat Cardiac: denies: Chest pain / pressure, Palpitations Respiratory: denies: Dyspnea, Cough GI: reports: Abdominal Pain, Nausea, Vomiting : reports: Frequency. denies: Dysuria Musculoskeletal: reports: Back pain. 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: Ovarian cysts : Chronic bladder infection, Other HEENT: None Psych: None Musculoskeletal: Fibromyalgia Derm: None - Past Surgical History Past Surgical History: No - Present Medications Home Medications: Ambulatory Orders Medication Instructions Recorded Confirmed Metronidazole [Flagyl] 500 mg PO BID #14 tablet 02/22/19 Naproxen 500 mg PO BID #20 tablet 02/22/19 Tramadol HCl 50 mg PO Q6H PRN #15 tablet 02/22/19 - Allergies Allergies/Adverse Reactions: Allergies Allergy/AdvReac Type Severity Reaction Status Date / Time acetaminophen [From Vicodin] Allergy Itching Verified 06/29/19 15:53 fentanyl Allergy Unknown Verified 06/29/19 15:53 hydrocodone bitartrate * Allergy Itching Verified 06/29/19 15:53 [From Vicodin] - Social History Does the pt smoke?: No Smoking Status: Never smoker Does the pt drink ETOH?: Yes Does the pt have substance abuse?: No - Immunizations Immunizations are current?: No - POLST Patient has POLST: No PD ED PE NORMAL - Vitals Vital signs reviewed: Yes - General General: Alert and oriented X 3, Well developed/nourished, Other (laying on the left side clutching the right flank with the right hand and appears to be in pain . ) - HEENT HEENT: Atraumatic, PERRL, EOMI, Other (dry mucous membranes ) - Neck Neck: Supple, no meningeal sign, No bony TTP - Cardiac Cardiac: RRR, No murmur - Respiratory Respiratory: No respiratory distress, Clear bilaterally - Abdomen Abdomen: Soft, Other (RUQ tenderness with tenderness to bimanual palpation of the right kidney. 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, No motor deficit, No sensory deficit, Normal speech Eye Opening: Spontaneous Motor: Obeys Commands Verbal: Oriented GCS Score: 15 - Psych Psych: Other (mood is withdrawn and the affect is flat ) Results - Vitals Vitals: Vital Signs - 24 hr 06/29/19 06/29/19 15:48 16:35 Temperature 98.6 C H 37.4 C Heart Rate 82 78 Respiratory 14 16 Rate Blood Pressure 104/55 L 109/55 L O2 Saturation 100 100 Oxygen O2 Source Room air - Labs Labs: Laboratory Tests 06/29/19 06/29/19 06/29/19 16:26 16:26 17:15 WBC 7.1 RBC 4.48 Hgb 13.3 Hct 40.3 MCV 90.0 MCH 29.7 MCHC 33.0 RDW 13.5 Plt Count 268 MPV 9.7 Neut # (Auto) 4.6 Lymph # (Auto) 2.0 [place] # (Auto) 0.5 Eos # (Auto) 0.0 Baso # (Auto) 0.0 Absolute Nucleated RBC 0.00 Nucleated RBC % 0.0 Sodium 141 Potassium 3.2 L Chloride 110 Carbon Dioxide 24 Anion Gap 7.0 BUN 11 Creatinine 0.4 Estimated GFR (MDRD) 193 Glucose 86 Calcium 8.2 L Total Bilirubin 0.4 AST 18 ALT 15 Alkaline Phosphatase 29 L Total Protein 6.6 L Albumin 3.8 Globulin 2.8 Albumin/Globulin Ratio 1.4 Lipase 34 Urine Color YELLOW Urine Clarity CLEAR Urine pH 7.0 Ur Specific [place] 1.015 Urine Protein NEGATIVE Urine Glucose (UA) NEGATIVE Urine Ketones 15 H Urine Occult Blood NEGATIVE Urine Nitrite NEGATIVE Urine Bilirubin NEGATIVE Urine Urobilinogen 0.2 (NORMAL) Ur Leukocyte Esterase NEGATIVE Ur Microscopic Review NOT INDICATED Urine Culture Comments NOT INDICATED Urine HCG, Qual NEGATIVE - Rads (name of study) CT abd/pel with Radiology: Prelim report reviewed (Impression: Trace free fluid in the pelvis and dilated left gonadal veins noted, otherwise unremarkable CT of the abdomen pelvis.), EMP read indepedently, See rad report Procedures - Bedside sono Bedside sono by EMP: These bedside ultrasound the right kidney is imaged there is sonographic tenderness to the area there is no significant hydronephrosis. Examination of the gallbladder is without sonographic tenderness and there is no obvious stone. - IVC sono (time) 1735 Bedside IVC sono: IVC measures (cm) (0.87), Dehydration (est 2 liter deficit) PD MEDICAL DECISION MAKING - ED course Complexity details: reviewed old records, reviewed results, re-evaluated patient, considered differential, d/w patient ED course: 24 y/o female with flank pain fever and nausea. I fully expected to find pyelo with this and the urine was clear the WBC was normal and the patient does not have fever here. A CT scan of the abdomen and pelvis is again obtained without obvious findings with the exception of stool and gas throughout the colon similar to prior scan in January of this year. The patient reports daily output and a problem with constipation in general. Close examination of the scan reveals a loop of large intestine folded back on itself directly over the kidney on the right side. The patient has some improvement with toradal but continues to hold her right flank. She is dehydrated and additional fluid is administered. Departure - Departure Disposition: 01 Home, Self Care Clinical Impression: Constipation Qualifiers: Constipation type: unspecified constipation type Qualified Code(s): K59.00 - Constipation, unspecified Condition: Stable Instructions: ED Constipation, ED Abdominal Pain Unkn Cause Follow-Up: Medardo Pino DO [Physician No Access] - Comments: Today your diagnostics were unremarkable with the exception of some excessive stool load on the CT scan of your abdomen and pelvis. My recommendation is to use MiraLAX on a regular basis to retain your colon.
[2019-06-29 16:33] LABS: BASOPHILS % (AUTO) 0.4 %; EOSINOPHILS % (AUTO) 0.4 %; HGB - HEMOGLOBIN 13.3 g/dL (12.0-16.0); LYMPHOCYTES % (AUTO) 28.1 %; MEAN CORPUSCULAR HEMOGLOBIN 29.7 pg (27.0-31.0); MEAN PLATELET VOLUME 9.7 fL (7.9-10.8); MONOCYTES # (AUTO) 0.5 10^3/uL (0.0-1.0); MONOCYTES % (AUTO) 6.7 %; NEUTROPHILS # (AUTO) 4.6 10^3/uL (1.5-6.6); NEUTROPHILS % (AUTO) 64.1 %; PLT - PLATELET COUNT 268 10^3/uL (130-450); RED BLOOD COUNT 4.48 10^6/uL (4.20-5.40); RED CELL DISTRIBUTION WIDTH 13.5 % (12.0-15.0); WHITE BLOOD COUNT 7.1 x10^3/uL (4.8-10.8)
[2019-06-29 17:10] LABS: ALBUMIN 3.8 g/dL (3.2-5.5); ALBUMIN/GLOBULIN RATIO 1.4 (1.0-2.2); BILIRUBIN,TOTAL 0.4 mg/dL (0.2-1.0); CALCIUM 8.2 mg/dL (8.5-10.3); CREATININE 0.4 mg/dL (0.4-1.0); TOTAL PROTEIN 6.6 g/dL (6.7-8.2)
[2019-06-29 17:25] LABS: BILIRUBIN,URINE NEGATIVE (NEGATIVE); GLUCOSE, URINE (UA) NEGATIVE (NEGATIVE); KETONES,URINE (UA) 15 mg/dL (NEGATIVE); LEUKOCYTE ESTERASE, URINE NEGATIVE (NEGATIVE); NITRITE,URINE NEGATIVE (NEGATIVE); OCCULT BLOOD,URINE NEGATIVE (NEGATIVE); PROTEIN,URINE NEGATIVE (NEGATIVE); UROBILINOGEN,URINE 0.2 (NORMAL) E.U./dL (NORMAL)
[2019-06-29 17:26] LABS: CLARITY,URINE CLEAR (CLEAR)
[2019-06-29 17:27] LABS: HCG UR QUAL NEGATIVE
[2019-06-29] MEDS ORDERED: POTASSIUM CHLORIDE 20 MEQ TABLET PO STA (17:27)
[2019-06-29] MEDS ORDERED: SODIUM CHLORIDE 0.9% 1,000 ML IV ONE (17:40)
[2019-06-29] MEDS ORDERED: IOVERSOL 320 100 ML VIAL IVP ONE ×2 (17:55→17:58)
--- NOTE | 2019-06-29 18:58 | CT Report ---
Reason: R flank pain Procedure Date: 06/29/2019 Accession Number: [id number] / [id number] Procedure: CT - Abdomen/Pelvis W CPT Code: FULL RESULT: EXAM: CT ABDOMEN AND PELVIS EXAM DATE: 06/29/2019 06:01 PM. CLINICAL HISTORY: Right flank pain. COMPARISONS: ABDOMEN/PELVIS W/ 01/09/2019 8:37 PM. TECHNIQUE: Routine helical CT imaging was performed through the abdomen and pelvis. IV contrast: 90 cc of Optiray 320. Enteric contrast: No. Reconstructions: Coronal and sagittal. In accordance with CT protocol optimization, one or more of the following dose reduction techniques were utilized for this exam: automated exposure control, adjustment of mA and/or KV based on patient size, or use of iterative reconstructive technique. FINDINGS: Lung Bases: Unremarkable. Liver: Normal. No masses. Gallbladder/Bile Ducts: Unremarkable. Spleen: Normal. Pancreas: Normal. Adrenal Glands: Normal. Kidneys: Normal. No masses or hydronephrosis. Peritoneal Cavity/Bowel: No free air or adenopathy. No masses or acute inflammatory process. The appendix is well visualized and normal. Pelvic Organs: Trace free fluid. The reproductive organs and bladder are unremarkable, noting corpus luteum on the right. Dilated left gonadal veins noted. Vasculature: No aneurysms or other significant abnormality. Bones: No significant abnormality. Other: None. IMPRESSION: Trace free fluid in the pelvis and dilated left gonadal veins noted, otherwise unremarkable CT of the abdomen and pelvis. RADIA
[2019-06-29 19:11] VITALS: BP 108/71
== END 2019-06-29 19:34 | disposition home or self-care (01) ==
LOC: EDUNIT# → ED 15:45
DX: K59.00 Constipation, unspecified (principal); E86.0 Dehydration
CPT/HCPCS: 36415; 74177; 80053; 81003; 81025; 83690; 85025; 96361; 96374; 99282; 99284; A9270; Q9967; 81001; 87086

== ENCOUNTER 2020-01-09 15:29 | Outpatient (CLI) | payer MEDICAID ==
[2020-01-09 21:15] LABS: TRICHOMONAS VAGINALIS DNA NEGATIVE (NEGATIVE)
[2020-01-09 22:26] LABS: CANDIDA KRUSEI DNA UNRESOLVED (NEGATIVE)
[2020-01-09 22:27] LABS: CANDIDA GROUP DNA UNRESOLVED (NEGATIVE); TRICHOMONAS VAGINALIS DNA UNRESOLVED (NEGATIVE)
== END 2020-01-09 23:59 | disposition home or self-care (01) ==
LOC: LAB.R 15:29
PROVIDERS: ATTEND Obstetrics & Gynecology
DX: Z11.3 Encounter for screening for infections with a predominantly sexual mode of transmission (principal)
CPT/HCPCS: 87491; 87591; 87661; 87801

== ENCOUNTER 2021-10-31 16:37 | Outpatient (CLI) | payer MEDICAID ==
[2021-10-31 16:46] LABS: BILIRUBIN,URINE NEGATIVE (NEGATIVE); GLUCOSE, URINE (UA) NEGATIVE (NEGATIVE); KETONES,URINE (UA) NEGATIVE (NEGATIVE); LEUKOCYTE ESTERASE, URINE NEGATIVE (NEGATIVE); NITRITE,URINE NEGATIVE (NEGATIVE); OCCULT BLOOD,URINE NEGATIVE (NEGATIVE); PH,URINE 7.5 PH (5.0-7.5); PROTEIN,URINE NEGATIVE (NEGATIVE); UROBILINOGEN,URINE 0.2 (NORMAL) E.U./dL (NORMAL)
[2021-10-31 16:50] LABS: CLARITY,URINE HAZY (CLEAR)
[2021-10-31 17:16] LABS: AMORPHOUS SEDIMENT,UR Few /LPF; BACTERIA,URINE Few /HPF (None Seen); RBC,URINE 0-5 /HPF (0-5); SQUAMOUS EPITHELIAL CELL,UR MOD Squamous (<= Few); WBC,URINE 0-3 /HPF (0-5)
[2021-10-31 23:00] LABS: CHLAMYDIA TRACHOMATIS DNA NEGATIVE (NEGATIVE); NEISSERIA GONORRHOEAE DNA NEGATIVE (NEGATIVE); TRICHOMONAS VAGINALIS DNA NEGATIVE (NEGATIVE)
== END 2021-10-31 16:38 | disposition home or self-care (01) ==
LOC: LAB 16:37
PROVIDERS: ATTEND Obstetrics & Gynecology
DX: R10.2 Pelvic and perineal pain (principal)
CPT/HCPCS: 81001; 87086; 87491; 87591; 87661

== ENCOUNTER 2021-12-26 15:39 | Outpatient (CLI) | payer MEDICAID ==
[2021-12-26 19:16] LABS: THYROID STIMULATING HORMONE 2.93 uIU/mL (0.34-5.60)
== END 2021-12-26 15:40 | disposition home or self-care (01) ==
LOC: LAB.N 15:39
PROVIDERS: ATTEND Obstetrics & Gynecology
DX: E03.9 Hypothyroidism, unspecified (principal)
CPT/HCPCS: 36415; 84443

== ENCOUNTER 2022-11-08 12:03 | Emergency (ER) | payer MEDICAID ==
--- NOTE | 2022-11-08 12:15 | ED Physician Documentation ---
PD HPI NVD - Stated complaint Stated Complaint: VOMITING - Chief complaint Chief Complaint: Abd Pain - History obtained from History obtained from: Patient - History of Present Illness Timing - onset: How many hours ago (5), Today Timing - duration: Hours (5) Timing - details: Abrupt onset, Still present (onset of vomiting since 7 am with multiple repeats. No diarrhea. Intermittent cramping abd pain, not consistent.) Associated symptoms: No: Fever, Chest pain, Hematemesis, Melena Contributing factors: No: Sick contact, Bad food, Recent antibiotics, Alcohol use Similar symptoms before: No diagnosis (prior stomach flu type episodes in the past. Not recent nor recurrent.) Review of Systems Constitutional: reports: Myalgias. denies: Fever, Chills Nose: denies: Rhinorrhea / runny nose, Congestion Throat: denies: Sore throat Cardiac: denies: Chest pain / pressure Respiratory: denies: Dyspnea, Cough GI: reports: Nausea, Vomiting, Diarrhea. 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 No neck stiffness.). 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 : Chronic bladder infection, Other HEENT: None Psych: None Musculoskeletal: Fibromyalgia Derm: None - Past Surgical History Past Surgical History: No - Present Medications Home Medications: Ambulatory Orders Medication Instructions Recorded Confirmed Ondansetron Odt [Zofran] 4 mg TL Q6H PRN #10 tablet 11/08/22 Promethazine [Phenergan] 25 mg PO Q6H PRN #15 tab 11/08/22 - Allergies Allergies/Adverse Reactions: Allergies Allergy/AdvReac Type Severity Reaction Status Date / Time acetaminophen [From Vicodin] Allergy Itching Verified 11/08/22 12:11 fentanyl Allergy Unknown Verified 11/08/22 12:11 hydrocodone bitartrate * Allergy Itching Verified 11/08/22 12:11 [From Vicodin] - Social History Does the pt smoke?: No Smoking Status: Never smoker Does the pt drink ETOH?: Yes Does the pt have substance abuse?: No - Immunizations Immunizations are current?: No - POLST Patient has POLST: No PD ED PE NORMAL - Vitals Vital signs reviewed: Yes - General General: Alert and oriented X 3, No acute distress, Well developed/nourished - HEENT HEENT: Pharynx benign. No: Moist mucous membranes - Neck Neck: Supple, no meningeal sign, No adenopathy - Cardiac Cardiac: RRR, No murmur - Respiratory Respiratory: Clear bilaterally - Abdomen Abdomen: Normal bowel sounds, Soft, Non tender, Non distended - Back Back: No CVA TTP - Derm Derm: Normal color Results - Vitals Vitals: Vital Signs - 24 hr 11/08/22 11/08/22 12:09 14:26 Temperature 37 C Heart Rate 78 96 Respiratory 16 18 Rate Blood Pressure 115/49 L 89/53 L O2 Saturation 99 99 Oxygen O2 Source Room air - Labs Labs: Laboratory Tests 11/08/22 11/08/22 12:45 12:45 WBC 15.0 H RBC 4.43 Hgb 13.1 Hct 41.6 MCV 93.9 MCH 29.6 MCHC 31.5 L RDW 13.8 Plt Count 272 MPV 10.6 Neut # (Auto) 13.7 H Lymph # (Auto) 0.8 L [place] # (Auto) 0.5 Eos # (Auto) 0.0 Baso # (Auto) 0.0 Absolute Nucleated RBC 0.00 Nucleated RBC % 0.0 Sodium 139 Potassium 3.6 Chloride 104 Carbon Dioxide 20 L Anion Gap 15.0 H BUN 24 H Creatinine 0.7 Estimated GFR (MDRD) 99 Glucose 84 Calcium 9.0 Total Bilirubin 0.8 AST 22 ALT 16 Alkaline Phosphatase 37 L Total Protein 8.1 Albumin 4.5 Globulin 3.6 Albumin/Globulin Ratio 1.3 Lipase 28 PD Medical Decision Making - ED course Complexity details: reviewed results, re-evaluated patient (feeling improved nausea but still moderate symptoms. given further antiemetic dosing with improvemnt alble to take fluids/water. ), considered differential (seems likely viral GE though no diarrhea. She is not particularly tender in GB area. No tender in RLQ. ), d/w patient Departure - Departure Disposition: 01 Home, Self Care Clinical Impression: Acute nausea with nonbilious vomiting, Dehydration, General weakness Condition: Stable Record reviewed to determine appropriate education?: Yes Instructions: ED Nausea Vomiting Follow-Up: Betsy Lara ND [Primary Care Provider] - Prescriptions: Promethazine [Phenergan] 25 mg PO Q6H PRN #15 tab PRN Reason: Nausea / Vomiting Ondansetron Odt [Zofran] 4 mg TL Q6H PRN #10 tablet PRN Reason: Nausea / Vomiting Comments: Your white count is slightly elevated suggesting likely infectious cause such as a stomach flu or viral type illness. Hopefully will just last for a day or so and improved. Your basic electrolytes and kidney function and blood sugar are good. Clinically you probably are under volume/dehydrated. The IV fluids here should have made that feel better. I would suggest using medication for nausea at home. Start with ondansetron/Zofran every 4-6 hours if needed. If this is not helping well enough, add promethazine/Phenergan every 6 hours. The promethazine will be a little more sedating. Small frequent fluids and bland food over the next today and into tomorrow. Progress diet as able. Tylenol if needed for pains or fevers. Recheck if not improved over the next 1 to 2 days and return sooner if worsening. I sent your prescriptions to [facility] pharmacy. Discharge Date/Time: 11/08/22 14:37
[2022-11-08] MEDS ORDERED: FAMOTIDINE 20 MG/2 ML VIAL IVP STA (12:28)
[2022-11-08] MEDS ORDERED: SODIUM CHLORIDE 0.9% 1,000 ML IV STA ×2 (12:28→13:11)
[2022-11-08] MEDS ORDERED: ONDANSETRON 4 MG/2 ML VIAL IVP STA (12:28)
[2022-11-08] MEDS ORDERED: KETOROLAC 15 MG/ML VIAL IVP STA (12:28)
[2022-11-08 12:50] LABS: BASOPHILS % (AUTO) 0.3 %; HCT - HEMATOCRIT 41.6 % (37.0-47.0); HGB - HEMOGLOBIN 13.1 g/dL (12.0-16.0); LYMPHOCYTES # (AUTO) 0.8 10^3/uL (1.5-3.5); MEAN CORPUSCULAR HEMOGLOBIN 29.6 pg (27.0-31.0); MEAN CORPUSCULAR HGB CONC 31.5 g/dL (32.0-36.0); MEAN CORPUSCULAR VOLUME 93.9 fL (81.0-99.0); MEAN PLATELET VOLUME 10.6 fL (7.9-10.8); MONOCYTES # (AUTO) 0.5 10^3/uL (0.0-1.0); MONOCYTES % (AUTO) 3.1 %; NEUTROPHILS # (AUTO) 13.7 10^3/uL (1.5-6.6); NEUTROPHILS % (AUTO) 91.3 %; PLT - PLATELET COUNT 272 10^3/uL (130-450); RED BLOOD COUNT 4.43 10^6/uL (4.20-5.40); RED CELL DISTRIBUTION WIDTH 13.8 % (12.0-15.0)
[2022-11-08 13:06] LABS: ALBUMIN 4.5 g/dL (3.2-5.5); ALBUMIN/GLOBULIN RATIO 1.3 (1.0-2.2); BILIRUBIN,TOTAL 0.8 mg/dL (0.2-1.0); CREATININE 0.7 mg/dL (0.4-1.0); POTASSIUM 3.6 mmol/L (3.5-5.0); TOTAL PROTEIN 8.1 g/dL (6.7-8.2)
[2022-11-08] MEDS ORDERED: DROPERIDOL 5 MG/2 ML VIAL IVP STA (13:36)
[2022-11-08 14:27] VITALS: BP 89/53
== END 2022-11-08 14:37 | disposition home or self-care (01) ==
LOC: ED 12:03
DX: R11.2 Nausea with vomiting, unspecified (principal); E86.0 Dehydration; R53.1 Weakness
CPT/HCPCS: 36415; 80053; 83690; 85025; 96374; 96375; 99283

== ENCOUNTER 2022-11-30 11:53 | Outpatient (CLI) | payer MEDICAID ==
--- NOTE | 2022-11-30 14:07 | Ultrasound Report ---
PROCEDURE: Abdomen Complete INDICATIONS: ABD PAIN TECHNIQUE: Real-time scanning was performed of the abdominal and retroperitoneal organs, with image documentatio n. COMPARISON: None. FINDINGS: Liver: Liver is normal in size and homogeneous in echotexture. Gallbladder: Unremarkable. Biliary ducts: Intrahepatic bile ducts are non-dilated. Extrahepatic bile duct caliber measures 2 m m. Normal is 6-7 mm or less in diameter, or 10 mm or less post-cholecystectomy. Pancreas: Visualized portions of the pancreas are sonographically normal. Spleen: Spleen is normal in size and homogeneous in echotexture. Kidneys: Kidneys are normal in size and echotexture. Right kidney measures 9.4 cm long; left kidney measures 8.7 cm long. No hydronephrosis or nephrolithiasis. No solid masses. Aorta: Visualized aorta is normal in caliber at less than 3 cm. Iliacs: Proximal common iliac arteries are normal in caliber at less than 2.5 cm. IVC: Intrahepatic inferior vena cava is patent. Miscellaneous: No free abdominal fluid. Patient's palpable lump corresponds to the right kidney. IMPRESSION: No acute abnormality. The patient's palpable lump corresponds to the right kidney. Reviewed by: Yousuf Lacy on 11/30/2022 2:06 PM PST Approved by: Yousuf Lacy on 11/30/2022 2:06 PM PST Station ID: [id number]
== END 2022-11-30 11:54 | disposition home or self-care (01) ==
LOC: DI 11:53
PROVIDERS: ATTEND Naturopath
DX: R10.84 Generalized abdominal pain (principal); K59.09 Other constipation

== ENCOUNTER 2023-05-22 13:06 | Emergency (ER) | payer MEDICAID ==
--- NOTE | 2023-05-22 13:28 | ED Physician Documentation ---
PD HPI NVD - Stated complaint Stated Complaint: VOMITTING - Chief complaint Chief Complaint: Abd Pain - History obtained from History obtained from: Patient - History of Present Illness Timing - onset: How many days ago (10/05) Timing - duration: Days (onset night (today being Wednesday) of nausea vomiting and diarrhea multiple times overnight. Diarrhea has lessened but nausea persists with occasional emesis into today. General weak and lightheaded. No focal abd pains.) Timing - details: Abrupt onset, Still present Associated symptoms: No: Fever, Abdominal pain Contributing factors: No: Sick contact, Bad food, Recent antibiotics Similar symptoms before: Has not had sx before (has had episodes of nausea and vomiting in past, but not concurrent diarrhea. She feels current episdoe seems more like viral GE or food related.) Recently seen: Not recently seen Review of Systems Constitutional: reports: Chills, Myalgias, Fatigue. denies: Fever Nose: denies: Rhinorrhea / runny nose, Congestion Throat: denies: Sore throat Respiratory: denies: Cough GI: reports: Nausea, Vomiting, Diarrhea. denies: Abdominal Swelling, Hematemesis, Bloody / black stool : denies: Dysuria, Frequency Neurologic: reports: Generalized weakness, Near syncope. 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: Ovarian cysts : Chronic bladder infection, Other HEENT: None Psych: None Musculoskeletal: Fibromyalgia Derm: None - Past Surgical History Past Surgical History: No - Present Medications Home Medications: Ambulatory Orders Medication Instructions Recorded Confirmed Famotidine [Pepcid] 20 mg PO DAILY #15 tablet 05/22/23 Ondansetron Odt [Zofran] 4 mg TL Q6H PRN #15 tablet 05/22/23 - Allergies Allergies/Adverse Reactions: Allergies Allergy/AdvReac Type Severity Reaction Status Date / Time acetaminophen [From Vicodin] Allergy Itching Verified 11/08/22 12:11 fentanyl Allergy Unknown Verified 11/08/22 12:11 hydrocodone bitartrate * Allergy Itching Verified 11/08/22 12:11 [From Vicodin] - Social History Does the pt smoke?: No Smoking Status: Never smoker Does the pt drink ETOH?: Yes Does the pt have substance abuse?: No - Immunizations Immunizations are current?: No - POLST Patient has POLST: No PD ED PE NORMAL - Vitals Vital signs reviewed: Yes - General General: Alert and oriented X 3, No acute distress, Well developed/nourished - HEENT HEENT: Pharynx benign. No: Moist mucous membranes - Neck Neck: Supple, no meningeal sign, No adenopathy - Cardiac Cardiac: RRR, No murmur - Respiratory Respiratory: Clear bilaterally - Abdomen Abdomen: Normal bowel sounds, Soft, Non distended, No organomegaly, Other (some tender mid abd to eepigastric without guarding, percussion nor rebound tender. ) - Derm Derm: Warm and dry. No: Normal color (somewhat pale) - Neuro Neuro: Alert and oriented X 3, No motor deficit, Normal speech Results - Vitals Vitals: Vital Signs - 24 hr 05/22/23 05/22/23 13:14 15:37 Temperature 36.9 C Heart Rate 63 67 Respiratory 18 15 Rate Blood Pressure 109/56 L 106/47 L O2 Saturation 98 100 Oxygen O2 Source Room air - Labs Labs: Laboratory Tests 05/22/23 05/22/23 14:06 14:06 WBC 8.4 RBC 4.62 Hgb 13.9 Hct 43.3 MCV 93.7 MCH 30.1 MCHC 32.1 RDW 13.3 Plt Count 266 MPV 10.7 Neut # (Auto) 7.3 H Lymph # (Auto) 0.7 L [place] # (Auto) 0.3 Eos # (Auto) 0.0 Baso # (Auto) 0.0 Absolute Nucleated RBC 0.00 Nucleated RBC % 0.0 Sodium 138 Potassium 3.8 Chloride 104 Carbon Dioxide 26 Anion Gap 8.0 BUN 21 H Creatinine 0.7 Estimated GFR (MDRD) 98 Glucose 82 Calcium 9.5 Magnesium 1.8 Total Bilirubin 0.6 AST 15 ALT 11 Alkaline Phosphatase 42 Total Protein 7.7 Albumin 4.6 Globulin 3.1 Albumin/Globulin Ratio 1.5 Lipase 13 PD Medical Decision Making - ED course Complexity details: reviewed results (CBC and electrolytes are good. Normal renal function. ), considered differential (seems c/w viral GE. no unusual food exposusres.No focal tenderness in abd to concern for appy, GB, focal infection. I do not feel imaging is needed. ), d/w patient Departure - Departure Disposition: 01 Home, Self Care Clinical Impression: Nausea vomiting and diarrhea, Volume depletion, gastrointestinal loss Condition: Stable Record reviewed to determine appropriate education?: Yes Instructions: ED Diet Vomiting Diarrhea Prescriptions: Famotidine [Pepcid] 20 mg PO DAILY #15 tablet Ondansetron Odt [Zofran] 4 mg TL Q6H PRN #15 tablet PRN Reason: Nausea / Vomiting Comments: It is good that you are feeling better. This sounds most likely to be a viral "stomach flu" given the abrupt vomiting and diarrhea. Typically these last a couple of days and then improve. Hopefully her through most of it at this point. Use ondansetron if needed for persistent nausea or vomiting. [id number] Imodium/loperamide can be used if you have recurring diarrhea. Tylenol every 4-6 hours if needed for cramps or pains. Your stomach would be fairly irritated from the throwing up. I would suggest easy to digest foods and commonly simple carbohydrates and starches initially as well as sugars like diluted juice or Gatorade or such. Progress diet as tolerated tomorrow etc. I would also suggest acid reducing medicine such as famotidine daily for the next week or 2. Recheck if not improved well over the next couple of days and return if worsened. Your basic blood test, electrolytes and such were okay. I sent prescription for medications to the [facility] pharmacy. Forms: PCP List Discharge Date/Time: 05/22/23 15:38
[2023-05-22] MEDS ORDERED: SODIUM CHLORIDE 0.9% 1,000 ML IV STA (13:52)
[2023-05-22] MEDS ORDERED: ONDANSETRON 4 MG/2 ML VIAL IVP STA (14:01)
[2023-05-22] MEDS ORDERED: FAMOTIDINE 20 MG/2 ML VIAL IVP STA (14:01)
[2023-05-22 14:11] LABS: BASOPHILS % (AUTO) 0.1 %; EOSINOPHILS % (AUTO) 0.4 %; HCT - HEMATOCRIT 43.3 % (37.0-47.0); HGB - HEMOGLOBIN 13.9 g/dL (12.0-16.0); LYMPHOCYTES # (AUTO) 0.7 10^3/uL (1.5-3.5); LYMPHOCYTES % (AUTO) 8.4 %; MEAN CORPUSCULAR HEMOGLOBIN 30.1 pg (27.0-31.0); MEAN CORPUSCULAR HGB CONC 32.1 g/dL (32.0-36.0); MEAN CORPUSCULAR VOLUME 93.7 fL (81.0-99.0); MEAN PLATELET VOLUME 10.7 fL (7.9-10.8); MONOCYTES # (AUTO) 0.3 10^3/uL (0.0-1.0); NEUTROPHILS # (AUTO) 7.3 10^3/uL (1.5-6.6); PLT - PLATELET COUNT 266 10^3/uL (130-450); RED BLOOD COUNT 4.62 10^6/uL (4.20-5.40); RED CELL DISTRIBUTION WIDTH 13.3 % (12.0-15.0); WHITE BLOOD COUNT 8.4 x10^3/uL (4.8-10.8)
[2023-05-22 14:29] LABS: ALBUMIN 4.6 g/dL (3.2-5.5); ALBUMIN/GLOBULIN RATIO 1.5 (1.0-2.2); BILIRUBIN,TOTAL 0.6 mg/dL (0.2-1.0); CALCIUM 9.5 mg/dL (8.5-10.3); CREATININE 0.7 mg/dL (0.6-1.3); MAGNESIUM 1.8 mg/dL (1.7-2.3); POTASSIUM 3.8 mmol/L (3.5-4.5); TOTAL PROTEIN 7.7 g/dL (6.4-8.9)
[2023-05-22] MEDS: SODIUM CHLORIDE 0.9% 1,000 ML IV STA ×2 (15:06→15:08)
[2023-05-22 15:43] VITALS: BP 106/47; O2SAT 100
== END 2023-05-22 15:38 | disposition home or self-care (01) ==
LOC: ED 13:06
DX: K92.89 Other specified diseases of the digestive system (principal); R11.2 Nausea with vomiting, unspecified; R19.7 Diarrhea, unspecified; E86.9 Volume depletion, unspecified; E03.9 Hypothyroidism, unspecified; Z79.899 Other long term (current) drug therapy
CPT/HCPCS: 36415; 80053; 83690; 83735; 85025; 96374; 96375; 99283

== ENCOUNTER 2023-08-25 08:00 | Outpatient (CLI) | payer MEDICAID ==
[2023-08-25 16:29] LABS: BILIRUBIN,URINE NEGATIVE (NEGATIVE); GLUCOSE, URINE (UA) NEGATIVE (NEGATIVE); KETONES,URINE (UA) NEGATIVE (NEGATIVE); LEUKOCYTE ESTERASE, URINE NEGATIVE (NEGATIVE); NITRITE,URINE NEGATIVE (NEGATIVE); OCCULT BLOOD,URINE SMALL (NEGATIVE); PROTEIN,URINE NEGATIVE (NEGATIVE); UROBILINOGEN,URINE 0.2 (NORMAL) E.U./dL (NORMAL)
[2023-08-25 16:31] LABS: CLARITY,URINE CLOUDY (CLEAR)
[2023-08-25 16:46] LABS: BACTERIA,URINE None Seen /HPF (None Seen); RBC,URINE 0-5 /HPF (0-5); SQUAMOUS EPITHELIAL CELL,UR RARE Squamous (<= Few); WBC,URINE 0-3 /HPF (0-5)
[2023-08-25 16:47] LABS: AMORPHOUS SEDIMENT,UR Marked /LPF
[2023-08-25 20:02] LABS: BACTERIAL VAGINOSIS DNA POSITIVE (NEGATIVE); CANDIDA GLABRATA DNA NEGATIVE (NEGATIVE); CANDIDA GROUP DNA NEGATIVE (NEGATIVE); CANDIDA KRUSEI DNA NEGATIVE (NEGATIVE); TRICHOMONAS VAGINALIS DNA NEGATIVE (NEGATIVE)
[2023-08-25 21:09] LABS: CHLAMYDIA TRACHOMATIS DNA NEGATIVE (NEGATIVE); NEISSERIA GONORRHOEAE DNA NEGATIVE (NEGATIVE)
== END 2023-08-25 23:59 | disposition home or self-care (01) ==
LOC: LAB.WC 08:00
PROVIDERS: ATTEND Obstetrics & Gynecology
DX: R10.2 Pelvic and perineal pain (principal); N89.8 Other specified noninflammatory disorders of vagina; Z20.2 Contact with and (suspected) exposure to infections with a predominantly sexual mode of transmission
CPT/HCPCS: 81001; 81003; 81514; 87086; 87491; 87591; 87661

== ENCOUNTER 2024-06-20 17:03 | Outpatient (CLI) | payer MEDICAID ==
--- NOTE | 2024-06-21 09:18 | Ultrasound Report ---
PROCEDURE: Pelvic Complete INDICATIONS: EXCESSIVE AND FREQUENT MENSTRUATION TECHNIQUE: Real-time transabdominal scanning was performed of the pelvic organs, with image documentation. COMPARISON: 04/04/2013 FINDINGS: Uterus: Uterus is anteverted and normal in size at 9.3 x 4.6 x 5.4 cm. The myometrium is heterogene ous. The endometrium measures 7 mm in combined thickness. Ovaries: The right ovary measures 2.7 x 1.2 x 3.1 cm, with a calculated ovarian volume of 4.9 cc. T he left ovary measures 3.2 x 2.3 x 2.9 cm, with a calculated ovarian volume of 11.3 cc. The ovaries have a normal sonographic appearance. Less than 12 follicles can be seen in each ovary. No adnexal masses are seen. 1.9 cm complex cyst within the left ovary likely functional cyst or involuting corpu s luteal cyst. Other: No free pelvic fluid. IMPRESSION: Essentially unremarkable pelvic sonogram. Reviewed by: Geoff Coe MD on 06/21/2024 9:17 AM PDT Approved by: Geoff Coe MD on 06/21/2024 9:17 AM PDT Station ID: [id number]
== END 2024-06-20 17:04 | disposition home or self-care (01) ==
LOC: DI 17:03
PROVIDERS: ATTEND Nurse Practitioner Obstetrics & Gynecology
DX: N92.0 Excessive and frequent menstruation with regular cycle (principal)